=== PATIENT | female | born 1955 | race Caucasian/White ===

== ENCOUNTER 2024-03-20 14:46 | Emergency (ER) | payer MEDICARE, SELFPAY ==
[2024-03-20 14:56] VITALS: BP 188/75; PULSE 87; RESP 16; TEMP 36.9; O2SAT 98
--- NOTE | 2024-03-20 15:20 | ED.GENADULT ---
HPI - General Adult General Chief complaint: Urogenital-Female Stated complaint: i cant pee Time Seen by Provider: 03/20/24 15:06 History of Present Illness HPI narrative: Lissy Gregg is a 68 y/o female who presents today with reports of getting started on Bupropion for anxiety by her new PCP who is taking her off of her Xanax that she has taken for 20-30 years. She states that she has been keeping track of how she feels and thinking she might be having adverse reactions to the buspar and having more anxiety but she states she went to go pee yesterday at about 1130 and could not pee she felt that it might be related to her anxiety but wasn't sure - she stats she was then able to urinate all day just fine. Today she had another episode of feeling like she needed to pee but then could not get urine out. No abdominal pain/ no flank pain/ no dysuria/ no fever/chills Related Data Allergies Allergy/AdvReac Type Severity Reaction Status Date / Time cephalexin Allergy Mild Unverified 01/01/10 09:22 Cephalosporins Allergy Mild Unverified 01/01/10 09:22 Review of Systems Review of Systems: All systems reviewed & are unremarkable except as noted in HPI and below Exam Narrative: GENERAL: Well-appearing, well-nourished, and in no acute distress. HEAD: Normocephalic, atraumatic. EYES: PERRLA and EOMI. ENT: Nares clear, no rhinorrhea or epistaxis. Mucous membranes moist. Oropharynx without tonsillar hypertrophy exudate or other lesions. NECK: Supple. No adenopathy or masses. No carotid bruits or JVD CHEST: Clear to auscultation. No respiratory distress. No wheezes rales or rhonchi HEART: Regular rate and rhythm. No murmur heard. Normal peripheral pulses. ABDOMEN: Soft, nontender, nondistended, normal active bowel sounds. EXTREMITIES: Normal range of motion. No edema. SKIN: Warm, dry, no rash. NEURO: No focal deficits. Alert and oriented x3. PSYCH: Normal mood and affect. Course Vital Signs Vital signs: Vital Signs Temperature 36.9 C 03/20/24 14:56 Pulse Rate 87 03/20/24 14:56 Respiratory Rate 16 03/20/24 14:56 Blood Pressure 188/75 H 03/20/24 14:56 Pulse Oximetry 98 03/20/24 14:56 Oxygen Delivery Room Air 03/20/24 14:56 Temperature 36.9 C 03/20/24 14:56 Pulse Rate 87 03/20/24 14:56 Respiratory Rate 16 03/20/24 14:56 Blood Pressure 188/75 H 03/20/24 14:56 Pulse Oximetry 98 03/20/24 14:56 Oxygen Delivery Room Air 03/20/24 14:56 Medical Decision Making MDM Narrative Medical decision making narrative: 68 y/o with reports of having two episodes of feeling like she needed to pee but couldn't Denies dysuria / denies abdominal pain/ denies flank pain She thinks it might be related to anxiety - because her new pcp doesn't want her to be on xanax anymore and started a new medication for her anxiety buspirone Exam - unremarkable Concern for : UTI/ kidney stone/ Will check UA/ bladder scan - post void bladder scan UA- negative Post void bladder scan - 52mls Medical Records Medical records reviewed: Yes I reviewed the external patient's medical records. Vital Signs Vital Signs: Vital Signs Temperature 36.9 C 03/20/24 14:56 Pulse Rate 87 03/20/24 14:56 Respiratory Rate 16 03/20/24 14:56 Blood Pressure 188/75 H 03/20/24 14:56 Pulse Oximetry 98 03/20/24 14:56 Oxygen Delivery Room Air 03/20/24 14:56 Temperature 36.9 C 03/20/24 14:56 Pulse Rate 87 03/20/24 14:56 Respiratory Rate 16 03/20/24 14:56 Blood Pressure 188/75 H 03/20/24 14:56 Pulse Oximetry 98 03/20/24 14:56 Oxygen Delivery Room Air 03/20/24 14:56 VItals reviewed by me Lab Data Lab results reviewed: Yes I reviewed the patient's lab results. Labs: Lab Results 03/20/24 Range/Units 15:48 Urine Color Yellow (Yellow) Urine Appearance Clear (Clear) Urine pH 7.5 (5.0-9.0) Ur Specific [place] 1.013 (1.001-1.035) Urine Protein
[2024-03-20 15:54] LABS: Appearance Urine Clear (Clear); Bilirubin Urine Negative (Negative); Blood Urine Negative (Negative); Color Urine Yellow (Yellow); Glucose Urine UA Negative (Negative); Ketones Urine Negative (Negative); Leukocyte Esterase Ur Negative LEU/UL (Negative); Nitrate Urine Negative (Negative); Protein Urine Negative (Negative); Specific Grav Ur 1.013 (1.001-1.035); pH Urine 7.5 (5.0-9.0)
[2024-03-20 15:57] LABS: Add Urine Microscopic? NO
== END 2024-03-20 17:05 | disposition home or self-care (01) ==
PROVIDERS: Emergency Provider Nurse Practitioner Family
DX: R39.15 Urgency of urination (principal); F41.9 Anxiety disorder, unspecified
CPT/HCPCS: 81003; 99283